=== PATIENT | female | born 1935 | race Two or more races ===

== ENCOUNTER 2019-10-04 19:46 | Inpatient (IN) | payer MEDICAID ==
[~2019-10-04] VITALS: Ht 160 cm; Wt 63.5 kg
[2019-10-04 20:00] VITALS: BP 123/56
--- NOTE | 2019-10-04 20:24 | Emergency Room Report ---
History of Present Illness General Chief Complaint: Chest Pain Source: Patient Present Illness HPI Disclaimer: Please note that this report is being documented using [employer] technology. This can lead to erroneous entry secondary to incorrect interpretation by the dictating instrument. HPI: This an 83-year-old female with history of CAD status post stenting, hypertension, hyperlipidemia presenting for evaluation of chest pain. Symptoms present approximate 2 days. Notes a pressure and congestion of the left side of the chest rating down the left arm. She notes some intermittent numbness and tingling down the left side. There is no lightheadedness, no loss of consciousness. She denies abdominal pain, nausea, vomiting. Reports some shortness of breath especially with exertion. She follows regular with her community health specialist cannot recall his name at this time. Last seen 8 months ago but unclear whether or not a stress test is been performed recently. Has been compliant with her medications. Denies any lower extremity swelling. PMH: CAD, hypertension, hyperlipidemia PSH: Cardiac stenting x3 Allergies: None reported Social Hx: Denies drug, tobacco or alcohol use Allergies: Coded Allergies: No Known Allergies (Unverified , 10/04/19) Nursing Documentation-PMH Hx Hypertension: Yes Review of Systems All Other Systems: negative except mentioned in HPI Physical Exam Vital Signs Date Time Temp Pulse Resp B/P (MAP) Pulse Ox O2 Delivery O2 Flow Rate FiO2 10/04/19 19:56 99.7 69 14 123/56 (78) 99 Room Air General: Awake and alert, no acute distress HEENT: NC/AT. EOMI. Cardiovascular: RRR. S1 and S2 normal. No murmur appreciated Resp: Normal work of breathing. No cough, wheezing or crackles appreciated Abdomen: Abdomen is soft, nondistended. Nontender Skin: Intact. No abrasions, laceration or rash over the exposed skin MSK: Normal tone and bulk. Moving all extremities. No obvious deformity. No lower extremity edema Neuro: Awake and alert. Mentating appropriately. Medical Decision Making Diagnostic Impression: Primary Impression: Chest pain ER Course This an 83-year-old female presenting for evaluation of chest pain. Symptoms present for 2 days but differential includes was not limited to unstable angina , ACS, pneumonia, CHF, musculoskeletal chest pain, dehydration, viral syndrome. Start broad metabolic, infectious and cardiac work-up. Given the patient's multiple risk factor she will require admission. Laboratory Tests Test 10/04/19 20:15 10/04/19 20:30 White Blood Count 5.7 K/UL (4.8-10.8) Red Blood Count 4.27 M/UL (4.20-5.40) Hemoglobin 13.4 G/DL (12.0-16.0) Hematocrit 38.0 % (37.0-47.0) Mean Corpuscular Volume 89 FL (80-99) Mean Corpuscular Hemoglobin 31.2 PG (27.0-31.0) H Mean Corpuscular Hemoglobin Concent 35.1 G/DL (32.0-36.0) Red Cell Distribution Width 9.7 % (11.6-14.8) L Platelet Count 117 K/UL (150-450) L Mean Platelet Volume 8.2 FL (6.5-10.1) Neutrophils (%) (Auto) 34.7 % (45.0-75.0) L Lymphocytes (%) (Auto) 51.2 % (20.0-45.0) H Monocytes (%) (Auto) 9.2 % (1.0-10.0) Eosinophils (%) (Auto) 3.4 % (0.0-3.0) H Basophils (%) (Auto) 1.5 % (0.0-2.0) Prothrombin Time 11.8 SEC (9.30-11.50) H Prothrombin Time INR 1.1 (0.9-1.1) PTT 24 SEC (23-33) D-Dimer 0.33 mg/L FEU (0.00-0.49) Sodium Level 144 MMOL/L (136-145) Potassium Level 4.2 MMOL/L (3.5-5.1) Chloride Level 107 MMOL/L (98-107) Carbon Dioxide Level 28 MMOL/L (21-32) Anion Gap 9 mmol/L (5-15) Blood Urea Nitrogen 19 mg/dL (7-18) H Creatinine 0.8 MG/DL (0.55-1.30) Estimate Glomerular Filtration Rate mL/min (>60) Glucose Level 102 MG/DL (74-106) Calcium Level 9.4 MG/DL (8.5-10.1) Total Bilirubin 0.4 MG/DL (0.2-1.0) Aspartate Amino Transferase (AST) 25 U/L (15-37) Alanine Aminotransferase (ALT) 42 U/L (12-78) Alkaline Phosphatase 107 U/L (46-116) Troponin I 0.000 ng/mL (0.000-0.056) Pro-B-Type Natriuretic Peptide 369 pg/mL (0-125) H Total Protein 7.0 G/DL (6.4-8.2) Albumin 3.8 G/DL (3.4-5.0) Globulin 3.2 g/dL Albumin/Globulin Ratio 1.2 (1.0-2.7) Urine Opiates Screen Negative (NEGATIVE) Urine Barbiturates Screen Negative (NEGATIVE) Phencyclidine (PCP) Screen Negative (NEGATIVE) Urine Amphetamines Screen Negative (NEGATIVE) Urine Benzodiazepines Screen Negative (NEGATIVE) Urine Cocaine Screen Negative (NEGATIVE) Urine Marijuana (THC) Screen Negative (NEGATIVE) Microbiology Date/Time Source Procedure Growth Status 10/04/19 21:00 Nasal Nares - Final Complete 10/04/19 21:00 Nasal Nares - Final Complete EKG Diagnostic Results EKG Time: 20:01 Rate: normal Rhythm: NSR ST Segments: no acute changes Other Impression Sinus rhythm, right upper axis deviation, normal intervals. No ST segment changes. Q waves in the inferior lateral leads Rhythm Strip Diag. Results Rhythm Strip Time: 20:01 EP Interpretation: yes Rate: 60s Rhythm: NSR, no PVC's, no ectopy Chest X-Ray Diagnostic Results Chest X-Ray Diagnostic Results : Chest X-Ray Ordered: Yes # of Views/Limited/Complete: 1 View Indication: Chest Pain EP Interpretation: Yes Interpretation: no consolidation, other - Bilateral vascular congestion. No obvious infiltrate or effusion Impression: Other - Bilateral vascular congestion Electronically Signed by: Electronically signed by Dr. Arnel Vivas Reevaluation Time: 21:57 Last Vital Signs Date Time Temp Pulse Resp B/P (MAP) Pulse Ox O2 Delivery O2 Flow Rate FiO2 10/04/19 19:56 99.7 69 14 123/56 (78) 99 Room Air Reevaluation Impression EKG shows inferior lateral Q waves consistent with the patient's history of CAD but no acute ST segment changes. Initial troponin is negative. Labs largely unremarkable. D-dimer negative. Flu swabs unremarkable. No obvious infiltrate or other pathology on chest x-ray. Given the patient's 2 days symptoms of left-sided radiating chest pain as well as exertional dyspnea believe she requires inpatient admission and cardiology evaluation. Family is agreeable. She will be admitted to telemetry. Disposition: ADMITTED INPATIENT Condition: Serious Arnel Vivas MD Oct 04, 2019 20:24
[2019-10-04 21:11] LABS: BASOPHILS % (AUTO) 1.5 % (0.0-2.0); EOSINOPHILS % (AUTO) 3.4 % (0.0-3.0); HEMOGLOBIN 13.4 G/DL (12.0-16.0); LYMPHOCYTES % (AUTO) 51.2 % (20.0-45.0); MEAN CORPUSCULAR VOLUME 89 FL (80-99); MONOCYTES % (AUTO) 9.2 % (1.0-10.0); NEUTROPHILS % (AUTO) 34.7 % (45.0-75.0); PLATELET COUNT 117 K/UL (150-450); RED BLOOD COUNT 4.27 M/UL (4.20-5.40); RED CELL DISTRIBUTION WIDTH 9.7 % (11.6-14.8); WHITE BLOOD COUNT 5.7 K/UL (4.8-10.8)
--- NOTE | 2019-10-04 21:13 | Diagnostic Imaging Report ---
Indications: Dizziness, vertigo Technique: Spiral acquisitions obtained through the brain. Angled axial and coronal 5 x 5 mm slices were reconstructed. Total dose length product 1332 mGycm. CTDI vol(s) 62 mGy. Dose reduction achieved using automated exposure control Comparison: None. Findings: There is mild periventricular deep white matter low-attenuation, consistent with chronic microvascular ischemic change. There is age-related enlargement of the ventricles and extra axial CSF spaces. Tiny right choroid plexus lipoma incidentally noted. No acute intracranial bleed or mass effect. There is left maxillary sinus opacification. There is evidence of prior bilateral cataract surgery. Impression: Chronic age-related changes Negative for acute intracranial bleed or mass effect Left maxillary sinus disease incidentally noted This agrees with the preliminary interpretation provided overnight by [facility] teleradiology service. The CT scanner at [facility] is accredited by the [employer] and the scans are performed using protocols designed to limit radiation exposure to as low as reasonably achievable to attain images of sufficient resolution adequate for diagnostic evaluation.
[2019-10-04 21:25] LABS: ANION GAP 9 mmol/L (5-15); BLOOD UREA NITROGEN 19 mg/dL (7-18); CALCIUM 9.4 MG/DL (8.5-10.1); CARBON DIOXIDE 28 MMOL/L (21-32); CHLORIDE 107 MMOL/L (98-107); CREATININE 0.8 MG/DL (0.55-1.30); POTASSIUM 4.2 MMOL/L (3.5-5.1); SODIUM 144 MMOL/L (136-145)
[2019-10-04 21:31] LABS: INR 1.1 (0.9-1.1)
[2019-10-04 21:32] LABS: ALANINE AMINOTRANSFERASE 42 U/L (12-78); ALBUMIN 3.8 G/DL (3.4-5.0); ALBUMIN/GLOBULIN RATIO 1.2 (1.0-2.7); ALKALINE PHOSPHATASE 107 U/L (46-116); ASPARTATE AMINO TRANSFERASE 25 U/L (15-37); BILIRUBIN,TOTAL 0.4 MG/DL (0.2-1.0)
[2019-10-04] MEDS ORDERED: Albuterol/Ipratropium 3ml neb HHN PRN (22:00)
[2019-10-04] MEDS ORDERED: Aspirin Baby 81mg ORAL ONE (22:00)
[2019-10-04] MEDS ORDERED: Nitroglycerin Subl 0.4mg tab SL PRN (22:00)
[2019-10-04] MEDS ORDERED: Miralax 17gm pkt ORAL PRN (22:00)
[2019-10-04 22:15] VITALS: BP 120/68
[2019-10-04] MEDS: Metoprolol Tartrate 5mg/5ml Inj IVP SCH ×2 (22:53→22:54)
[2019-10-04] MEDS ORDERED: Metoprolol Tartrate 5mg/5ml Inj IVP PRN (23:00)
[2019-10-05] VITALS: BP 109/45
[2019-10-05 04:00] VITALS: BP 108/52
--- NOTE | 2019-10-05 04:23 | History and Physical ---
History of Present Illness General Date patient seen: Oct 05, 2019 Reason for Hospitalization: Chest Pain Present Illness HPI 83-year-old female with history of CAD status post stents, hypertension, hyperlipidemia and diabetes presents with chest pain for 2 days. This is pressure-like and radiating down her left arm. Patient also reports intermittent numbness and Tingling on the left side. She also has palpitations. All of this was on and off and with resolve on its own. Denies any lightheadedness, syncope, dizziness, abdominal pain, nausea or vomiting. She is also experienced some burning sensation after eating some [place] food in the epigastric area. Patient also has shortness of breath especially on exertion and lying flat. Patient has a receiver dispatcher but cannot remember the name. Last seen about a month ago. Her cardiac stents were placed in [place]. Patient is compliant with medications. At this time she denies any lower extremity edema but sometimes she has trace edema after eating certain salty foods. Past medical history: Hypertension, hyperlipidemia, diabetes, CAD status post stents Past surgical history: Remote breast cyst surgery Social history: Never smoker, never EtOH or illicit drug use Family history: Denies any family history of heart disease. Allergies: Coded Allergies: No Known Allergies (Unverified , 10/04/19) Medication History Scheduled Atorvastatin Calcium* (Atorvastatin Calcium*), 40 MG ORAL BEDTIME, (Reported) Clopidogrel* (Clopidogrel*), 75 MG ORAL DAILY, (Reported) Isosorbide Mononitrate (Isosorbide Mononitrate Er), 30 MG PO DAILY, (Reported) Metformin Hcl* (Metformin Hcl*), 500 MG ORAL BID, (Reported) Metoprolol Tartrate* (Metoprolol Tartrate*), 25 MG ORAL DAILY, (Reported) Trazodone Hcl* (Desyrel*), 50 MG ORAL BEDTIME, (Reported) Patient History Healthcare decision maker N Resuscitation status Full Code Advanced Directive on File Review of Systems Constitutional: Denies: no symptoms, see HPI, chills, sweats, fever, malaise, weakness, other Eye: Denies: no symptoms, see HPI, eye pain, blurred vision, tearing, double vision, nose pain, nose congestion, acuity changes, discharge, other ENT: Denies: no symptoms, see HPI, ear pain, ear discharge, nose pain, nose congestion, throat pain, throat swelling, mouth pain, hearing loss, nasal discharge, other Respiratory: Reports: shortness of breath, SANZ Cardiovascular: Reports: chest pain, palpitations Gastrointestinal: Denies: no symptoms, see HPI, abdominal pain, constipation, diarrhea, nausea, vomiting, melena, hematemesis, other Genitourinary: Denies: no symptoms, see HPI, discharge, dysuria, frequency, hematuria, pain, retention, incontinence, urgency, vag bleed/dc, other Musculoskeletal: Denies: no symptoms, see HPI, back pain, gout, joint pain, joint swelling, muscle pain, muscle stiffness, other Skin: Denies: no symptoms, see HPI, rash, change in color, change in hair/nails , dryness, lesions, other Psychiatric: Denies: no symptoms, see HPI, prior hx, anxiety, depressed feelings, emotional problems, SI, HI, hallucinations, other Neurological: Denies: no symptoms, see HPI, headache, numbness, paresthesia, seizure, tingling, tremors, focal weakness, syncope, dizziness, other Endocrine: Denies: no symptoms, see HPI, excessive sweating, flushing, intolerance to temperature, increased thirst, increased urine, unexplained weight loss, other Hematologic/Lymphatic: Denies: no symptoms, see HPI, anemia, blood clots, easy bleeding, easy bruising, swollen glands, diathesis, other Physical Exam General Appearance: WD/WN, no apparent distress, alert Lines, tubes and drains: peripheral HEENT: normocephalic, atraumatic, anicteric, mucous membranes moist, PERRL, EOMI Neck: non-tender, normal alignment, supple, normal inspection Respiratory/Chest: chest wall non-tender, lungs clear, normal breath sounds, no respiratory distress Cardiovascular/Chest: normal peripheral pulses, normal rate, regular rhythm, no JVD, systolic murmur Abdomen: normal bowel sounds, non tender, soft, no organomegaly Extremities: normal range of motion, non-tender, no calf tenderness, no edema Skin Exam: normal pigmentation, warm/dry Neurologic: tax clerk II-XII grossly normal, no motor/sensory deficits, alert, oriented x 3, responsive Last 24 Hour Vital Signs Date Time Temp Pulse Resp B/P (MAP) Pulse Ox O2 Delivery O2 Flow Rate FiO2 10/05/19 01:31 Room Air 1/6/20 00:00 98.0 63 18 109/45 (66) 97 10/04/19 23:36 49 10/04/19 22:40 99.7 61 13 114/74 99 Room Air 10/04/19 22:15 99.7 60 13 120/68 99 Room Air 10/04/19 20:00 68 14 Room Air 10/04/19 20:00 99.7 68 14 123/56 99 Room Air 10/04/19 19:56 99.7 69 14 123/56 (78) 99 Room Air Laboratory Tests Test 10/04/19 20:15 10/04/19 20:30 White Blood Count 5.7 K/UL (4.8-10.8) Red Blood Count 4.27 M/UL (4.20-5.40) Hemoglobin 13.4 G/DL (12.0-16.0) Hematocrit 38.0 % (37.0-47.0) Mean Corpuscular Volume 89 FL (80-99) Mean Corpuscular Hemoglobin 31.2 PG (27.0-31.0) H Mean Corpuscular Hemoglobin Concent 35.1 G/DL (32.0-36.0) Red Cell Distribution Width 9.7 % (11.6-14.8) L Platelet Count 117 K/UL (150-450) L Mean Platelet Volume 8.2 FL (6.5-10.1) Neutrophils (%) (Auto) 34.7 % (45.0-75.0) L Lymphocytes (%) (Auto) 51.2 % (20.0-45.0) H Monocytes (%) (Auto) 9.2 % (1.0-10.0) Eosinophils (%) (Auto) 3.4 % (0.0-3.0) H Basophils (%) (Auto) 1.5 % (0.0-2.0) Prothrombin Time 11.8 SEC (9.30-11.50) H Prothromb Time International Ratio 1.1 (0.9-1.1) Activated Partial Thromboplast Time 24 SEC (23-33) D-Dimer 0.33 mg/L FEU (0.00-0.49) Sodium Level 144 MMOL/L (136-145) Potassium Level 4.2 MMOL/L (3.5-5.1) Chloride Level 107 MMOL/L (98-107) Carbon Dioxide Level 28 MMOL/L (21-32) Anion Gap 9 mmol/L (5-15) Blood Urea Nitrogen 19 mg/dL (7-18) H Creatinine 0.8 MG/DL (0.55-1.30) Estimat Glomerular Filtration Rate mL/min (>60) Glucose Level 102 MG/DL (74-106) Calcium Level 9.4 MG/DL (8.5-10.1) Total Bilirubin 0.4 MG/DL (0.2-1.0) Aspartate Amino Transf (AST/SGOT) 25 U/L (15-37) Alanine Aminotransferase (ALT/SGPT) 42 U/L (12-78) Alkaline Phosphatase 107 U/L (46-116) Troponin I 0.000 ng/mL (0.000-0.056) Pro-B-Type Natriuretic Peptide 369 pg/mL (0-125) H Total Protein 7.0 G/DL (6.4-8.2) Albumin 3.8 G/DL (3.4-5.0) Globulin 3.2 g/dL Albumin/Globulin Ratio 1.2 (1.0-2.7) Urine Opiates Screen Negative (NEGATIVE) Urine Barbiturates Screen Negative (NEGATIVE) Phencyclidine (PCP) Screen Negative (NEGATIVE) Urine Amphetamines Screen Negative (NEGATIVE) Urine Benzodiazepines Screen Negative (NEGATIVE) Urine Cocaine Screen Negative (NEGATIVE) Urine Marijuana (THC) Screen Negative (NEGATIVE) Microbiology Date/Time Source Procedure Growth Status 10/04/19 21:00 Nasal Nares - Final Complete 10/04/19 21:00 Nasal Nares - Final Complete Height (Feet): 5 Height (Inches): 3.00 Weight (Pounds): 140 Medications Current Medications Medications (Trade) Dose Ordered Sig/Da Route PRN Reason Start Time Stop Time Status Last Admin Dose Admin Acetaminophen (Tylenol) 650 mg Q4H PRN ORAL Mild Pain (Pain Scale 1-3) 10/04/19 22:00 11/03/19 21:59 Acetaminophen (Tylenol) 650 mg Q4H PRN ORAL fever 10/04/19 22:00 11/03/19 21:59 Albuterol/ Ipratropium (Albuterol/ Ipratropium) 3 ml Q4HR PRN HHN Shortness of Breath 10/04/19 22:00 10/09/19 21:59 Aspirin (ASA) 81 mg DAILY ORAL 10/05/19 09:00 11/04/19 08:59 Dextrose (Dextrose 50%) 25 ml Q30M PRN IV Hypoglycemia 10/04/19 22:00 11/03/19 21:59 Dextrose (Dextrose 50%) 50 ml Q30M PRN IV Hypoglycemia 10/04/19 22:00 11/03/19 21:59 Heparin Sodium (Porcine) (Heparin 5000 units/ml) 5,000 units EVERY 12 HOURS SUBQ 10/05/19 09:00 11/04/19 08:59 UNV Metoprolol Tartrate (Lopressor) 5 mg Q5MIN X 3 PRN IVP For High Blood Pressure 10/04/19 23:00 11/03/19 22:59 UNV Nitroglycerin (Ntg) 0.4 mg Q5M PRN SL Prn Chest Pain 10/04/19 22:00 11/03/19 21:59 Polyethylene Glycol (Miralax) 17 gm DAILYPRN PRN ORAL Constipation 10/04/19 22:00 11/03/19 21:59 Temazepam (Restoril) 15 mg BEDTIME PRN ORAL Insomnia 10/04/19 22:30 10/11/19 22:29 Objective Narrative EKG strip personally reviewed by me shows normal sinus rhythm at 64 bpm, right axis deviation, right ventricular hypertrophy, no acute ST-T changes Chest x-ray is reviewed by radiology: Bilateral interstitial edema, cardiomegaly CT head: Negative for any acute pathology Assessment/Plan Problem List: (1) Diastolic CHF, acute on chronic ICD Codes: I50.33 - Acute on chronic diastolic (congestive) heart failure SNOMED: 279028103, 161559248 (2) CAD S/P percutaneous coronary angioplasty ICD Codes: I25.10 - Atherosclerotic heart disease of [place] coronary artery without angina pectoris; Z98.61 - Coronary angioplasty status SNOMED: 559407329 (3) Diabetes mellitus ICD Codes: E11.9 - Type 2 diabetes mellitus without complications SNOMED: 76870202 (4) HTN (hypertension) ICD Codes: I10 - Essential (primary) hypertension SNOMED: 65574396 (5) HLD (hyperlipidemia) ICD Codes: E78.5 - Hyperlipidemia, unspecified SNOMED: 31553979 (6) Chest pain ICD Codes: R07.9 - Chest pain, unspecified SNOMED: 05759776 (7) Thrombocytopenia ICD Codes: D69.6 - Thrombocytopenia, unspecified SNOMED: 665841565 Status: stable Assessment/Plan: This is an 83-year-old female with significant cardiac history, CAD status post PCI on Plavix, hypertension, hyperlipidemia, diabetes presented with chest pain of 2 days duration. Her vitals were within normal limits and stable. Her troponin is negative x2, U tox is negative, d-dimer is negative, EKG nonischemic , proBNP 369, platelet count 117, chest x-ray with bilateral interstitial edema and cardiomegaly. 1. Chest pain rule out ACS in a patient with significant cardiac history 2. Diastolic CHF acute likely on chronic 3. Hypertension 4. Hyperlipidemia 5. Diabetes 6. Thrombocytopenia Plan Admit to telemetry Serial cardiac enzymes and EKG 2D echocardiogram to evaluate LV systolic function and any regional wall motion abnormalities Cardiology consult with Resume home metoprolol, isosorbide mononitrate, clopidogrel, atorvastatin Hold metformin. Start insulin via sensitive sliding scale. Check hemoglobin A1c Judicious diuresis Cardiac stress test per cardiology discretion Monitor platelet count, if no improvement hematology consult VTE and GI prophylaxis. Will obtain venous ultrasound and use SCD boots due to thrombocytopenia Full code I spent 70 minutes on this encounter. Greater than 50% spent on counseling care coordination. I spent an additional 35 minutes in obtaining previous records, labs and imaging and hospitalization. I also initiated goals of care and advanced directive discussion with patient. Will offer POLST & before discharge. Patient's daughter: Firoozeh: [phone] Plan of care discussed with patient, RN, receiver dispatcher. Time of note may not reflect time of encounter. Raj Bran M.D. Oct 05, 2019 04:23
[2019-10-05] MEDS ORDERED: ISOSORBIDE MONO30 M1 PO (04:35)
[2019-10-05] MEDS ORDERED: CLOPIDOGREL75 MG ORAL (04:35)
[2019-10-05] MEDS ORDERED: METFORMIN HCL500 M1 ORAL (04:35)
[2019-10-05] MEDS ORDERED: ATORVASTATIN CA40 MG ORAL (04:35)
[2019-10-05] MEDS ORDERED: METOPROLOL TART25 MG ORAL (04:35)
[2019-10-05] MEDS ORDERED: TRAZODONE HCL50 MG ORAL (04:35)
[2019-10-05 04:53] LABS: ANION GAP 9 mmol/L (5-15); BLOOD UREA NITROGEN 17 mg/dL (7-18); CARBON DIOXIDE 26 MMOL/L (21-32); CHLORIDE 110 MMOL/L (98-107); CREATININE 0.7 MG/DL (0.55-1.30); SODIUM 145 MMOL/L (136-145)
[2019-10-05 04:58] LABS: HEMATOCRIT 38.3 % (37.0-47.0); HEMOGLOBIN 13.5 G/DL (12.0-16.0); MEAN CORPUSCULAR VOLUME 89 FL (80-99); PLATELET COUNT 113 K/UL (150-450); RED CELL DISTRIBUTION WIDTH 10.8 % (11.6-14.8); WHITE BLOOD COUNT 5.4 K/UL (4.8-10.8)
[2019-10-05 05:05] LABS: ALANINE AMINOTRANSFERASE 37 U/L (12-78); ALBUMIN 3.5 G/DL (3.4-5.0); ALBUMIN/GLOBULIN RATIO 1.2 (1.0-2.7); ALKALINE PHOSPHATASE 84 U/L (46-116); ASPARTATE AMINO TRANSFERASE 23 U/L (15-37); BILIRUBIN,TOTAL 0.5 MG/DL (0.2-1.0)
[2019-10-05 08:00] VITALS: BP 149/76
[2019-10-05] MEDS: Aspirin Baby 81mg ORAL SCH (08:38)
[2019-10-05] MEDS ORDERED: Heparin 5000 units/ml inj SUBQ SCH (09:00)
[2019-10-05] MEDS: Imdur 30mg tab ORAL SCH (11:00)
[2019-10-05] MEDS: Metoprolol Succinate XL 50mg tab ORAL SCH (11:00)
[2019-10-05] MEDS: NovoLOG Insulin Flexpen SUBQ SCH ×3 (11:30→21:00)
[2019-10-05 12:00] VITALS: BP 131/76
--- NOTE | 2019-10-05 15:39 | Cardiac Electrophysiology PN ---
Subjective Subjective [id number] Objective Last 24 Hour Vital Signs Date Time Temp Pulse Resp B/P (MAP) Pulse Ox O2 Delivery O2 Flow Rate FiO2 10/05/19 12:00 61 10/05/19 12:00 97.9 65 18 131/76 (94) 95 10/05/19 11:00 72 149/76 10/05/19 11:00 149/76 10/05/19 09:00 Room Air 10/05/19 08:00 72 10/05/19 08:00 98.0 64 20 149/76 (100) 97 10/05/19 04:00 98.2 59 18 108/52 (70) 98 10/05/19 04:00 51 10/05/19 01:31 Room Air 10/05/19 00:00 98.0 63 18 109/45 (66) 97 10/04/19 23:36 49 10/04/19 22:40 99.7 61 13 114/74 99 Room Air 10/04/19 22:15 99.7 60 13 120/68 99 Room Air 10/04/19 20:00 68 14 Room Air 10/04/19 20:00 99.7 68 14 123/56 99 Room Air 10/04/19 19:56 99.7 69 14 123/56 (78) 99 Room Air Intake and Output 10/04/19 10/05/19 19:00 07:00 Intake Total 240 ml Balance 240 ml Intake Oral 240 ml # Voids 4 Laboratory Tests Test 10/04/19 20:15 10/04/19 20:30 10/05/19 04:00 White Blood Count 5.7 K/UL (4.8-10.8) 5.4 K/UL (4.8-10.8) Red Blood Count 4.27 M/UL (4.20-5.40) 4.30 M/UL (4.20-5.40) Hemoglobin 13.4 G/DL (12.0-16.0) 13.5 G/DL (12.0-16.0) Hematocrit 38.0 % (37.0-47.0) 38.3 % (37.0-47.0) Mean Corpuscular Volume 89 FL (80-99) 89 FL (80-99) Mean Corpuscular Hemoglobin 31.2 PG (27.0-31.0) H 31.3 PG (27.0-31.0) H Mean Corpuscular Hemoglobin Concent 35.1 G/DL (32.0-36.0) 35.2 G/DL (32.0-36.0) Red Cell Distribution Width 9.7 % (11.6-14.8) L 10.8 % (11.6-14.8) L Platelet Count 117 K/UL (150-450) L 113 K/UL (150-450) L Mean Platelet Volume 8.2 FL (6.5-10.1) 8.1 FL (6.5-10.1) Neutrophils (%) (Auto) 34.7 % (45.0-75.0) L % (45.0-75.0) Lymphocytes (%) (Auto) 51.2 % (20.0-45.0) H % (20.0-45.0) Monocytes (%) (Auto) 9.2 % (1.0-10.0) % (1.0-10.0) Eosinophils (%) (Auto) 3.4 % (0.0-3.0) H % (0.0-3.0) Basophils (%) (Auto) 1.5 % (0.0-2.0) % (0.0-2.0) Prothrombin Time 11.8 SEC (9.30-11.50) H Prothromb Time International Ratio 1.1 (0.9-1.1) Activated Partial Thromboplast Time 24 SEC (23-33) D-Dimer 0.33 mg/L FEU (0.00-0.49) Sodium Level 144 MMOL/L (136-145) 145 MMOL/L (136-145) Potassium Level 4.2 MMOL/L (3.5-5.1) 4.0 MMOL/L (3.5-5.1) Chloride Level 107 MMOL/L (98-107) 110 MMOL/L (98-107) H Carbon Dioxide Level 28 MMOL/L (21-32) 26 MMOL/L (21-32) Anion Gap 9 mmol/L (5-15) 9 mmol/L (5-15) Blood Urea Nitrogen 19 mg/dL (7-18) H 17 mg/dL (7-18) Creatinine 0.8 MG/DL (0.55-1.30) 0.7 MG/DL (0.55-1.30) Estimat Glomerular Filtration Rate mL/min (>60) mL/min (>60) Glucose Level 102 MG/DL (74-106) 81 MG/DL (74-106) Calcium Level 9.4 MG/DL (8.5-10.1) 9.0 MG/DL (8.5-10.1) Total Bilirubin 0.4 MG/DL (0.2-1.0) 0.5 MG/DL (0.2-1.0) Aspartate Amino Transf (AST/SGOT) 25 U/L (15-37) 23 U/L (15-37) Alanine Aminotransferase (ALT/SGPT) 42 U/L (12-78) 37 U/L (12-78) Alkaline Phosphatase 107 U/L (46-116) 84 U/L (46-116) Troponin I 0.000 ng/mL (0.000-0.056) 0.000 ng/mL (0.000-0.056) Pro-B-Type Natriuretic Peptide 369 pg/mL (0-125) H Total Protein 7.0 G/DL (6.4-8.2) 6.5 G/DL (6.4-8.2) Albumin 3.8 G/DL (3.4-5.0) 3.5 G/DL (3.4-5.0) Globulin 3.2 g/dL 3.0 g/dL Albumin/Globulin Ratio 1.2 (1.0-2.7) 1.2 (1.0-2.7) Urine Opiates Screen Negative (NEGATIVE) Urine Barbiturates Screen Negative (NEGATIVE) Phencyclidine (PCP) Screen Negative (NEGATIVE) Urine Amphetamines Screen Negative (NEGATIVE) Urine Benzodiazepines Screen Negative (NEGATIVE) Urine Cocaine Screen Negative (NEGATIVE) Urine Marijuana (THC) Screen Negative (NEGATIVE) Thyroid Stimulating Hormone (TSH) 1.075 uiU/mL (0.358-3.740) Microbiology Date/Time Source Procedure Growth Status 10/04/19 21:00 Nasal Nares - Final Complete 10/04/19 21:00 Nasal Nares - Final Complete John Giordano MD Oct 05, 2019 15:39
[2019-10-05] MEDS ORDERED: Lexiscan 0.4mg/5ml syringe IV PRN (15:45)
[2019-10-05 16:00] VITALS: BP 152/84
--- NOTE | 2019-10-05 18:47 | Diagnostic Imaging Report ---
Indication: Chest pain Technique: One view of the chest Comparison: none Findings: The heart is enlarged. There is bilateral interstitial edema. The pleural spaces are grossly clear Impression: Cardiomegaly Bilateral interstitial edema
[2019-10-05 20:00] VITALS: BP 118/64
[2019-10-05] MEDS ORDERED: Atorvastatin 20mg tab ORAL SCH (21:00)
[2019-10-05] MEDS ORDERED: TraZODone 50mg tab ORAL SCH (21:00)
[2019-10-06 00:03] VITALS: BP 121/62
--- NOTE | 2019-10-06 00:15 | Consultation ---
DATE OF CONSULTATION: 10/05/2019 CARDIOLOGY CONSULTATION CONSULTING PHYSICIAN: John Giordano M.D. REFERRING PHYSICIAN: Patricia Julien M.D. REASON FOR CONSULTATION: Chest pain. HISTORY OF PRESENT ILLNESS: The patient is an 83-year-old [place] lady with a history of coronary artery disease, prior stent placement in [place] a few years back, as well as hyperlipidemia, who presents to the emergency room complaining of chest pain that has been going on for about 2 days. The patient states it is not pressure like but she feels more like a congestion in the left side of her chest with radiation to the left arm. The patient did not have any syncope or presyncope, nausea, vomiting, or diaphoresis. The patient has some dyspnea on exertion. She usually follows up with a sheet music salesperson, but does not remember his name as it has been changed through her insurance. The patient last saw the sheet music salesperson about 8 months ago, but not sure if she had ever at a stress test since then. REVIEW OF SYSTEMS: Review of systems was negative other than what was mentioned in the history of present illness. PAST MEDICAL HISTORY: As mentioned above. FAMILY HISTORY: Noncontributory. SOCIAL HISTORY: She lives at home. Does not smoke or drink alcohol. PHYSICAL EXAMINATION: VITAL SIGNS: Blood pressure 131/76, pulse 65, respirations 18, and she is afebrile. HEAD AND NECK: Showed no JVD. LUNGS: Clear. CARDIOVASCULAR: Regular S1 and S2 with no gallop or murmur. ABDOMEN: Soft and nontender. EXTREMITIES: No pitting edema. LABORATORY AND DIAGNOSTIC DATA: Her EKG shows sinus rhythm, positive for right ventricular hypertrophy, nonspecific T-wave abnormalities. Her labs show white count of 5.5, hemoglobin 13.5, hematocrit 38.3, and platelet count of 113. Sodium is 145, potassium 4.0, BUN of 17, creatinine 0.7. Troponin negative x2. BNP 369. ASSESSMENT AND PLAN: 1. Chest pain. The patient with a history of coronary artery disease, hypertension, and hyperlipidemia. The patient will be ruled out for myocardial infarction. EKG has nonspecific ST-T wave abnormalities. Her echocardiogram showed normal left ventricular systolic function, ejection fraction of 60%. We will schedule the patient for stress test. 2. Hypertension. Continue Toprol-XL 25 mg daily as well as Imdur 30 mg daily. 3. History of coronary artery disease with prior stent, on aspirin, Plavix, Imdur, Toprol-XL as well as Lipitor. 4. Chronic obstructive pulmonary disease. 5. Diabetes, on insulin. Thank you very much, Dr. Julien, for allowing me to participate in the care of this patient. Please do not hesitate to contact me for any questions regarding my evaluation. Sincerely, John Giordano M.D. DR: Sravanthi JOB#: [id number] CC:
[2019-10-06 04:00] VITALS: BP 107/55
[2019-10-06] MEDS: NovoLOG Insulin Flexpen SUBQ SCH ×3 (06:22→16:30)
[2019-10-06 07:22] LABS: BASOPHILS % (AUTO) 1.3 % (0.0-2.0); EOSINOPHILS % (AUTO) 4.4 % (0.0-3.0); HEMOGLOBIN 13.2 G/DL (12.0-16.0); LYMPHOCYTES % (AUTO) 51.9 % (20.0-45.0); MEAN CORPUSCULAR VOLUME 90 FL (80-99); MONOCYTES % (AUTO) 10.1 % (1.0-10.0); NEUTROPHILS % (AUTO) 32.4 % (45.0-75.0); PLATELET COUNT 114 K/UL (150-450); RED BLOOD COUNT 4.23 M/UL (4.20-5.40); RED CELL DISTRIBUTION WIDTH 10.6 % (11.6-14.8); WHITE BLOOD COUNT 4.3 K/UL (4.8-10.8)
[2019-10-06 07:44] LABS: ANION GAP 7 mmol/L (5-15); BLOOD UREA NITROGEN 10 mg/dL (7-18); CARBON DIOXIDE 27 MMOL/L (21-32); CHLORIDE 109 MMOL/L (98-107); CREATININE 0.7 MG/DL (0.55-1.30); POTASSIUM 4.2 MMOL/L (3.5-5.1); SODIUM 143 MMOL/L (136-145)
[2019-10-06 08:00] VITALS: BP 121/69
[2019-10-06] MEDS: Imdur 30mg tab ORAL SCH (08:25)
[2019-10-06] MEDS: Metoprolol Succinate XL 50mg tab ORAL SCH (08:26)
[2019-10-06] MEDS: Aspirin Baby 81mg ORAL SCH (09:06)
--- NOTE | 2019-10-06 11:23 | Cardiac Electrophysiology PN ---
Assessment/Plan Assessment/Plan 1. Chest pain in a pt with history of coronary artery disease, hypertension, and hyperlipidemia. Was ruled out for myocardial infarction. EKG has nonspecific ST-T wave abnormalities. Her echocardiogram showed normal left ventricular systolic function, ejection fraction of 60%. Nuclear stress test pending today. On Aspirin, Plavix, Toprol, Lipitor and Imdur 2. Hypertension. Continue Toprol-XL 25 mg daily as well as Imdur 30 mg daily. 3. History of coronary artery disease with prior stent, on aspirin, Plavix, Imdur, Toprol-XL as well as Lipitor. 4. Chronic obstructive pulmonary disease. 5. Diabetes, on insulin. OLIVE RN Subjective Subjective No CP or SOB.Awaiting stress test today Objective Last 24 Hour Vital Signs Date Time Temp Pulse Resp B/P (MAP) Pulse Ox O2 Delivery O2 Flow Rate FiO2 10/06/19 09:00 Room Air 10/06/19 08:26 60 121/69 10/06/19 08:25 121/69 10/06/19 08:00 97.7 60 18 121/69 (86) 98 10/06/19 08:00 54 10/06/19 07:37 67 18 97 21 10/06/19 04:12 52 10/06/19 04:00 97.8 65 18 107/55 (72) 97 10/06/19 00:03 98.2 66 17 121/62 (81) 96 10/06/19 00:00 60 10/05/19 21:00 Room Air 10/05/19 20:00 61 10/05/19 20:00 98.1 63 18 118/64 (82) 95 10/05/19 16:00 61 10/05/19 16:00 97.5 76 18 152/84 (106) 98 10/05/19 12:00 61 10/05/19 12:00 97.9 65 18 131/76 (94) 95 Intake and Output 10/05/19 10/06/19 19:00 07:00 Intake Total 510 ml 360 ml Balance 510 ml 360 ml Intake Oral 360 ml 360 ml IV Total 150 ml # Voids 3 3 # Bowel Movements 1 Laboratory Tests Test 10/06/19 06:28 White Blood Count 4.3 K/UL (4.8-10.8) L Red Blood Count 4.23 M/UL (4.20-5.40) Hemoglobin 13.2 G/DL (12.0-16.0) Hematocrit 38.0 % (37.0-47.0) Mean Corpuscular Volume 90 FL (80-99) Mean Corpuscular Hemoglobin 31.1 PG (27.0-31.0) H Mean Corpuscular Hemoglobin Concent 34.6 G/DL (32.0-36.0) Red Cell Distribution Width 10.6 % (11.6-14.8) L Platelet Count 114 K/UL (150-450) L Mean Platelet Volume 7.5 FL (6.5-10.1) Neutrophils (%) (Auto) 32.4 % (45.0-75.0) L Lymphocytes (%) (Auto) 51.9 % (20.0-45.0) H Monocytes (%) (Auto) 10.1 % (1.0-10.0) H Eosinophils (%) (Auto) 4.4 % (0.0-3.0) H Basophils (%) (Auto) 1.3 % (0.0-2.0) Sodium Level 143 MMOL/L (136-145) Potassium Level 4.2 MMOL/L (3.5-5.1) Chloride Level 109 MMOL/L (98-107) H Carbon Dioxide Level 27 MMOL/L (21-32) Anion Gap 7 mmol/L (5-15) Blood Urea Nitrogen 10 mg/dL (7-18) Creatinine 0.7 MG/DL (0.55-1.30) Estimat Glomerular Filtration Rate mL/min (>60) Glucose Level 103 MG/DL (74-106) Hemoglobin A1c 6.4 % (4.3-6.0) H Calcium Level 9.0 MG/DL (8.5-10.1) Microbiology Date/Time Source Procedure Growth Status 10/04/19 21:00 Nasal Nares - Final Complete 10/04/19 21:00 Nasal Nares - Final Complete Objective HEAD AND NECK: No JVD. LUNGS: Clear. CARDIOVASCULAR: Regular S1 and S2 with no gallop or murmur. ABDOMEN: Soft and nontender. EXTREMITIES: No pitting edema. John Giordano MD Oct 06, 2019 11:22
--- NOTE | 2019-10-06 11:24 | Cardiac Electrophysiology PN ---
Assessment/Plan Assessment/Plan 1. Chest pain in a patient with a history of coronary artery disease, hypertension, and hyperlipidemia. Was ruled out for myocardial infarction. EKG has nonspecific ST-T wave abnormalities. Her echocardiogram showed normal left ventricular systolic function, ejection fraction of 60%. Scheduled for stress test today. 2. Hypertension. Continue Toprol-XL 25 mg daily as well as Imdur 30 mg daily. 3. History of coronary artery disease with prior stent, on aspirin, Plavix, Imdur, Toprol-XL as well as Lipitor. 4. Chronic obstructive pulmonary disease. 5. Diabetes, on insulin. Subjective Subjective No CP or SOB. Awaiting nuclear stress test today. HR dropped to 50 this am. Objective Last 24 Hour Vital Signs Date Time Temp Pulse Resp B/P (MAP) Pulse Ox O2 Delivery O2 Flow Rate FiO2 10/06/19 08:26 60 121/69 10/06/19 08:25 121/69 10/06/19 08:00 97.7 60 18 121/69 (86) 98 10/06/19 07:37 67 18 97 21 10/06/19 04:12 52 10/06/19 04:00 97.8 65 18 107/55 (72) 97 10/06/19 00:03 98.2 66 17 121/62 (81) 96 10/06/19 00:00 60 10/05/19 21:00 Room Air 10/05/19 20:00 61 10/05/19 20:00 98.1 63 18 118/64 (82) 95 10/05/19 16:00 61 10/05/19 16:00 97.5 76 18 152/84 (106) 98 10/05/19 12:00 61 10/05/19 12:00 97.9 65 18 131/76 (94) 95 Intake and Output 10/05/19 10/06/19 19:00 07:00 Intake Total 510 ml 360 ml Balance 510 ml 360 ml Intake Oral 360 ml 360 ml IV Total 150 ml # Voids 3 3 # Bowel Movements 1 Laboratory Tests Test 10/06/19 06:28 White Blood Count 4.3 K/UL (4.8-10.8) L Red Blood Count 4.23 M/UL (4.20-5.40) Hemoglobin 13.2 G/DL (12.0-16.0) Hematocrit 38.0 % (37.0-47.0) Mean Corpuscular Volume 90 FL (80-99) Mean Corpuscular Hemoglobin 31.1 PG (27.0-31.0) H Mean Corpuscular Hemoglobin Concent 34.6 G/DL (32.0-36.0) Red Cell Distribution Width 10.6 % (11.6-14.8) L Platelet Count 114 K/UL (150-450) L Mean Platelet Volume 7.5 FL (6.5-10.1) Neutrophils (%) (Auto) 32.4 % (45.0-75.0) L Lymphocytes (%) (Auto) 51.9 % (20.0-45.0) H Monocytes (%) (Auto) 10.1 % (1.0-10.0) H Eosinophils (%) (Auto) 4.4 % (0.0-3.0) H Basophils (%) (Auto) 1.3 % (0.0-2.0) Sodium Level 143 MMOL/L (136-145) Potassium Level 4.2 MMOL/L (3.5-5.1) Chloride Level 109 MMOL/L (98-107) H Carbon Dioxide Level 27 MMOL/L (21-32) Anion Gap 7 mmol/L (5-15) Blood Urea Nitrogen 10 mg/dL (7-18) Creatinine 0.7 MG/DL (0.55-1.30) Estimat Glomerular Filtration Rate mL/min (>60) Glucose Level 103 MG/DL (74-106) Hemoglobin A1c 6.4 % (4.3-6.0) H Calcium Level 9.0 MG/DL (8.5-10.1) Microbiology Date/Time Source Procedure Growth Status 10/04/19 21:00 Nasal Nares - Final Complete 10/04/19 21:00 Nasal Nares - Final Complete Objective HEAD AND NECK: No JVD. LUNGS: Clear. CARDIOVASCULAR: Regular S1 and S2 with no gallop or murmur. ABDOMEN: Soft and nontender. EXTREMITIES: No pitting edema. John Giordano MD Oct 06, 2019 11:24
[2019-10-06 11:56] VITALS: BP 131/74
--- NOTE | 2019-10-06 14:04 | General Progress Note ---
Assessment/Plan Problem List: (1) Diastolic CHF, acute on chronic ICD Codes: I50.33 - Acute on chronic diastolic (congestive) heart failure SNOMED: 513776315, 393091825 (2) CAD S/P percutaneous coronary angioplasty ICD Codes: I25.10 - Atherosclerotic heart disease of [place] coronary artery without angina pectoris; Z98.61 - Coronary angioplasty status SNOMED: 377201031 (3) Diabetes mellitus ICD Codes: E11.9 - Type 2 diabetes mellitus without complications SNOMED: 04987064 (4) HTN (hypertension) ICD Codes: I10 - Essential (primary) hypertension SNOMED: 16756001 (5) HLD (hyperlipidemia) ICD Codes: E78.5 - Hyperlipidemia, unspecified SNOMED: 99357309 (6) Chest pain ICD Codes: R07.9 - Chest pain, unspecified SNOMED: 11068205 (7) Thrombocytopenia ICD Codes: D69.6 - Thrombocytopenia, unspecified SNOMED: 793345660 Status: stable Assessment/Plan: This is an 83-year-old female with significant cardiac history, CAD status post PCI on Plavix, hypertension, hyperlipidemia, diabetes presented with chest pain of 2 days duration. Her vitals were within normal limits and stable. Her troponin is negative x2, U tox is negative, d-dimer is negative, EKG nonischemic , proBNP 369, platelet count 117, chest x-ray with bilateral interstitial edema and cardiomegaly. 1. Chest pain rule out ACS in a patient with significant cardiac history. stress test today 2. Diastolic CHF acute likely on chronic 3. Hypertension 4. Hyperlipidemia 5. Diabetes 6. Thrombocytopenia Plan Admit to telemetry Serial cardiac enzymes and EKG 2D echocardiogram to evaluate LV systolic function and any regional wall motion abnormalities. normal EF Cardiology consult with appreciated Resume home metoprolol, isosorbide mononitrate, clopidogrel, atorvastatin Hold metformin. Start insulin via sensitive sliding scale. Check hemoglobin A1c--> 6.4 Judicious diuresis Cardiac stress test per cardiology today Monitor platelet count, if no improvement hematology consult VTE and GI prophylaxis. Will obtain venous ultrasound and use SCD boots due to thrombocytopenia Full code I spent 40 minutes on this encounter. Greater than 50% spent on counseling care coordination Patient's daughter: Richardoodarronh: [phone] Plan of care discussed with patient, RN, electron gun assembler. Time of note may not reflect time of encounter. Subjective Date patient seen: Oct 06, 2019 ROS Limited/Unobtainable: No Constitutional: Denies: no symptoms, chills, diaphoresis, fever, malaise, weakness, other HEENT: Denies: no symptoms, eye pain, blurred vision, tearing, double vision, ear pain, ear discharge, nose pain, nose congestion, throat pain, throat swelling, mouth pain, mouth swelling, other Cardiovascular: Denies: no symptoms, chest pain, edema, irregular heart rate, lightheadedness, palpitations, syncope, other Respiratory: Denies: no symptoms, cough, orthopnea, shortness of breath, SOB with excertion, SOB at rest, sputum, stridor, wheezing, other Gastrointestinal/Abdominal: Denies: no symptoms, abdomen distended, abdominal pain, black stools, tarry stools, blood in stool, constipated, diarrhea, difficulty swallowing, nausea, poor appetite, poor fluid intake, rectal bleeding , vomiting, other Genitourinary: Denies: no symptoms, burning, discharge, frequency, flank pain, hematuria, incontinence, pain, urgency, other Neurologic/Psychiatric: Denies: no symptoms, anxiety, depressed, emotional problems, headache, numbness, paresthesia, pre-existing deficit, seizure, tingling, tremors, weakness, other Endocrine: Denies: no symptoms, excessive sweating, flushing, intolerance to cold, intolerance to heat, increased hunger, increased thirst, increased urine, unexplained weight gain, unexplained weight loss, other Hematologic/Lymphatic: Denies: no symptoms, anemia, easy bleeding, easy bruising, other Allergies: Coded Allergies: No Known Allergies (Unverified , 10/04/19) Subjective seen and examined at bedside. for stress test today. upset that patient in the next bed to her is using a commode that's very close to her bed. denies chest pain, sob, palpitations. Objective Last 24 Hour Vital Signs Date Time Temp Pulse Resp B/P (MAP) Pulse Ox O2 Delivery O2 Flow Rate FiO2 10/06/19 12:00 46 10/06/19 11:56 97.0 51 20 131/74 (93) 98 10/06/19 09:00 Room Air 10/06/19 08:26 60 121/69 10/06/19 08:25 121/69 10/06/19 08:00 97.7 60 18 121/69 (86) 98 10/06/19 08:00 54 10/06/19 07:37 67 18 97 21 10/06/19 04:12 52 10/06/19 04:00 97.8 65 18 107/55 (72) 97 10/06/19 00:03 98.2 66 17 121/62 (81) 96 10/06/19 00:00 60 10/05/19 21:00 Room Air 10/05/19 20:00 61 10/05/19 20:00 98.1 63 18 118/64 (82) 95 10/05/19 16:00 61 10/05/19 16:00 97.5 76 18 152/84 (106) 98 Intake and Output 10/05/19 10/06/19 19:00 07:00 Intake Total 510 ml 360 ml Balance 510 ml 360 ml Intake Oral 360 ml 360 ml IV Total 150 ml # Voids 3 3 # Bowel Movements 1 Laboratory Tests 10/06/19 06:28: White Blood Count 4.3L, Red Blood Count 4.23, Hemoglobin 13.2, Hematocrit 38.0, Mean Corpuscular Volume 90, Mean Corpuscular Hemoglobin 31.1H, Mean Corpuscular Hemoglobin Concent 34.6, Red Cell Distribution Width 10.6L, Platelet Count 114L , Mean Platelet Volume 7.5, Neutrophils (%) (Auto) 32.4L, Lymphocytes (%) (Auto ) 51.9H, Monocytes (%) (Auto) 10.1H, Eosinophils (%) (Auto) 4.4H, Basophils (%) (Auto) 1.3, Sodium Level 143, Potassium Level 4.2, Chloride Level 109H, Carbon Dioxide Level 27, Anion Gap 7, Blood Urea Nitrogen 10, Creatinine 0.7, Estimat Glomerular Filtration Rate , Glucose Level 103, Hemoglobin A1c 6.4H, Calcium Level 9.0 Height (Feet): 5 Height (Inches): 3.00 Weight (Pounds): 140 Objective General Appearance: WD/WN, no apparent distress, alert Lines, tubes and drains: peripheral HEENT: normocephalic, atraumatic, anicteric, mucous membranes moist, PERRL, EOMI Neck: non-tender, normal alignment, supple, normal inspection Respiratory/Chest: chest wall non-tender, lungs clear, normal breath sounds, no respiratory distress Cardiovascular/Chest: normal peripheral pulses, normal rate, regular rhythm, no JVD, systolic murmur Abdomen: normal bowel sounds, non tender, soft, no organomegaly Extremities: normal range of motion, non-tender, no calf tenderness, no edema Skin Exam: normal pigmentation, warm/dry Neurologic: aircraft load controller II-XII grossly normal, no motor/sensory deficits, alert, oriented x 3, responsive Raj Bran M.D. Oct 06, 2019 14:04
[2019-10-06 15:48] VITALS: BP 124/67
--- NOTE | 2019-10-06 16:08 | Diagnostic Imaging Report ---
Indications: Chest pain Technique: Single day single isotope protocol utilized. Initially, resting images obtained using IV administration 10.7 millicuries 99M technetium Myoview. Subsequently, patient underwent lexiscan stress testing. See cardiology report for details. During adenosine infusion, IV administration 32.2 mCi 99 M technetium Myoview. SPECT and planar images obtained. SPECT images gated to 8 phases of the cardiac cycle were also obtained, and reformatted into cine images for evaluation of ejection fraction. Comparison: none Findings: Per cardiology report, patient experienced epigastric pain and chest pain during infusion. Per cardiology report, resting EKG demonstrates normal sinus rhythm. [address] depression seen in the lead I, 3, aVF, V3 through V6 during infusion. Imaging demonstrates no fixed nor reversible post stress perfusion defects. Normal cardiac chamber size. Calculated post stress ejection fraction 88%. No focal wall motion abnormality demonstrated Impression: Ischemic clinical response to pharmacologic stress, per cardiology report Ischemic electrocardiographic response to pharmacologic stress, per cardiology report No imaging findings to suggest ischemia, at level of stress achieved. Calculated post stress ejection fraction greater than 70%
--- NOTE | 2019-10-06 17:08 | Discharge Summary ---
Discharge Summary Hospital Course Date of Admission Oct 04, 2019 at 21:17 Date of Discharge 10/06/19 Admitting Diagnosis chest pain HPI Dena Mao is a 83 year old female who was admitted on Oct 04, 2019 at 21:17 for Chest Pain Consultations cardiology Procedures nuclear stress test Hospital Course This is an 83-year-old female with significant cardiac history, CAD status post PCI on Plavix, hypertension, hyperlipidemia, diabetes presented with chest pain of 2 days duration. Her vitals were within normal limits and stable. Her troponin is negative x2, U tox is negative, d-dimer is negative, EKG nonischemic , proBNP 369, platelet count 117, chest x-ray with bilateral interstitial edema and cardiomegaly. 1. Chest pain rule out ACS in a patient with significant cardiac history. stress test today---> nonischemic 2. Diastolic CHF acute likely on chronic 3. Hypertension 4. Hyperlipidemia 5. Diabetes 6. Thrombocytopenia Plan Admit to telemetry Serial cardiac enzymes and EKG 2D echocardiogram to evaluate LV systolic function and any regional wall motion abnormalities. normal EF Cardiology consult with appreciated Resume home metoprolol, isosorbide mononitrate, clopidogrel, atorvastatin Hold metformin. Start insulin via sensitive sliding scale while in the hospital. resume metformin on discharge Check hemoglobin A1c--> 6.4 Judicious diuresis Cardiac stress test per cardiology today was non ischemic Monitor platelet count, if no improvement hematology consult VTE and GI prophylaxis. Will obtain venous ultrasound and use SCD boots due to thrombocytopenia Full code Today she is alert and oriented x3, lung: cta vl, heart s1s2, ext: no edema I spent 40 minutes on this encounter. Greater than 50% spent on counseling care coordination Patient's daughter: Ekta: [phone] Plan of care discussed with patient, RN, events traffic controller. Time of note may not reflect time of encounter. Discharge Medications Continued Medications: Atorvastatin Calcium* (Atorvastatin Calcium*) 40 Mg Tablet 40 MG ORAL BEDTIME, TAB Clopidogrel* (Clopidogrel*) 75 Mg Tablet 75 MG ORAL DAILY, TAB Isosorbide Mononitrate (Isosorbide Mononitrate Er) 30 Mg Tab.er.24h 30 MG PO DAILY, TAB Metformin Hcl* (Metformin Hcl*) 500 Mg Tablet 500 MG ORAL BID, TAB Metoprolol Tartrate* (Metoprolol Tartrate*) 25 Mg Tablet 25 MG ORAL DAILY, TAB Trazodone Hcl* (Desyrel*) 50 Mg Tablet 50 MG ORAL BEDTIME, TAB Discharge Condition Upon Discharge: stable Discharge Disposition Patient was discharged to home Discharge Diagnoses: (1) Diastolic CHF, acute on chronic (2) CAD S/P percutaneous coronary angioplasty (3) Chest pain (4) Thrombocytopenia (5) HLD (hyperlipidemia) (6) HTN (hypertension) (7) Diabetes mellitus Raj Bran M.D. Oct 06, 2019 17:08
== END 2019-10-06 18:51 | disposition home or self-care (01) | DRG 293 ==
LOC: EMR 20:31 → 2E 21:17 → EDBEDREQ 21:34
DX: I11.0 Hypertensive heart disease with heart failure (principal); I50.33 Acute on chronic diastolic (congestive) heart failure; I25.10 Atherosclerotic heart disease of native coronary artery without angina pectoris; Z95.5 Presence of coronary angioplasty implant and graft; E78.5 Hyperlipidemia, unspecified; E11.9 Type 2 diabetes mellitus without complications; D69.6 Thrombocytopenia, unspecified; R07.89 Other chest pain
CPT/HCPCS: 36415; 70450; 71045; 78452; 80048; 80053; 80307; 82962; 83036; 83880; 84443; 84484; 85025; 85379; 85610; 85730; 86710; 93005; 93017; 93306; 94664; 99285; J1815; J2785

== ENCOUNTER 2020-03-09 17:01 | Emergency (ER) | payer MEDICAID ==
[~2020-03-09] VITALS: Ht 154.9 cm; Wt 66.7 kg
[~2020-03-09 17:01] MED LIST: ATORVASTATIN CA40 MG ORAL; CLOPIDOGREL75 MG ORAL; ISOSORBIDE MONO30 M1 PO; METFORMIN HCL500 M1 ORAL; METOPROLOL TART25 MG ORAL; TRAZODONE HCL50 MG ORAL
[2020-03-09] MEDS ORDERED: ASPIRIN EC81 MG ORAL (17:27)
--- NOTE | 2020-03-09 17:35 | NUR ---
ED Nurse Note: Pt ambulated to ED from home d/t s/p right hand injury; 'stuck in the door'; bruise and swelling over the right hand noted. VSS, on RA, afebrile on triage. Placed on bed.
[2020-03-09 17:37] VITALS: BP 97/56
--- NOTE | 2020-03-09 17:42 | NUR ---
ED Nurse Note: X-ray tech at bedside.
[2020-03-09 18:15] VITALS: BP 97/56
--- NOTE | 2020-03-09 18:15 | NUR ---
ER DISCHARGE NOTE: Pt is cleared to be discharged per ERMD, pt is aox4, on room air, with stable vital signs. pt was given dc and prescription instructions, pt was able to verbalize understanding, pt id band removed. pt is able to ambulate with steady gait. pt took all belongings.
--- NOTE | 2020-03-09 18:32 | Emergency Room Report ---
History of Present Illness General Chief Complaint: Upper Extremity Injury Source: Patient (Natacha Hamm) Present Illness HPI 84-year-old female with history of hypertension, normal CHF currently here complaining. Patient rates the pain 10 out of 10 without radiation. Denies any tingling numbness. Has not taken medication for symptom relief. Patient is on aspirin and Plavix. Patient appears to be stable with stable vital signs. Denies cough and congestion, shortness of breath, at this time. Patient is neurovascularly intact. (Natacha Hamm) Allergies: Coded Allergies: No Known Allergies (Unverified , 10/04/19) COVID-19 Screening Contact w/high risk pt: No Recent Travel to affected area: No Experienced COVID-19 symptoms?: No COVID-19 Testing performed MEDICATION NURSE: No (Natacha Hamm) Patient History Past Medical History: see triage record Past Surgical History: none Pertinent Family History: none Now: No Immunizations: UTD Reviewed Nursing Documentation: PMH: Agreed; PSxH: Agreed (Natacha Hamm) Nursing Documentation-PMH Past Medical History: No History, Except For Hx Cardiac Problems: Yes - Stent placement x3 Hx Hypertension: No Hx Pacemaker: No Hx Asthma: No Hx COPD: No Hx Diabetes: Yes Hx Cancer: No Hx Gastrointestinal Problems: No Hx Dialysis: No History Of Psychiatric Problem: No Hx Neurological Problems: No Hx Cerebrovascular Accident: No Hx Seizures: No (Natacha Hamm) Review of Systems All Other Systems: negative except mentioned in HPI (Natacha Hamm) Physical Exam Vital Signs Date Time Temp Pulse Resp B/P (MAP) Pulse Ox O2 Delivery O2 Flow Rate FiO2 03/09/20 17:21 98.2 71 15 97/56 (70) 96 Room Air Sp02 EP Interpretation: reviewed, normal General Appearance: no apparent distress, alert, GCS 15, non-toxic Head: normocephalic, atraumatic Eyes: bilateral eye normal inspection, bilateral eye PERRL ENT: hearing grossly normal, normal pharynx, no angioedema, normal voice Neck: full range of motion, supple/symm/no masses Respiratory: chest non-tender, lungs clear, normal breath sounds Cardiovascular #1: regular rate, rhythm, no edema Cardiovascular #2: 2+ radial (R), 2+ radial (L) Gastrointestinal: normal bowel sounds, non tender, soft, non-distended, no guarding, no rebound Rectal: deferred Genitourinary: no CVA tenderness Musculoskeletal: back normal, tender - Right fourth and fifth metacarpal bone, swelling - Right hand Neurologic: alert, motor strength/tone normal, oriented x3, sensory intact, responsive, speech normal Psychiatric: judgement/insight normal, memory normal, mood/affect normal, no suicidal/homicidal ideation Skin: no rash, other - Obvious ecchymosis noted on right fourth and fifth metacarpal bone Lymphatic: no adenopathy (Natacha Hamm) Medical Decision Making PA Attestation All my diagnosis and treatment plans were reviewed ad discussed with my supervising physician Dr. Garcia (Natacha Hamm) Medicare Attestation The history of Dena Pleitez has been reviewed and management options for her have been examined and discussed by Pool Garcia. I have personally examined and interviewed the patient. (Pool Garcia MD) Diagnostic Impression: Primary Impression: Crushing injury of right hand Additional Impression: Metacarpal bone fracture ER Course 84-year-old female with history of hypertension, normal CHF currently here complaining. Patient rates the pain 10 out of 10 without radiation. Denies any tingling numbness. Has not taken medication for symptom relief. Patient is on aspirin and Plavix. Patient appears to be stable with stable vital signs. Denies cough and congestion, shortness of breath, at this time. Patient is neurovascularly intact. Ddx considered but are not limited to: Hand sprain, hand sprain, hand fracture Vital signs: are WNL, pt. is afebrile H&PE are most consistent with : Right fourth and fifth metacarpal bone fracture due to crushing injury ORDERS: Hand x-ray ED INTERVENTIONS: Tylenol, splint was applied DISCHARGE: At this time pt. is stable for d/c to home. Will provide printed patient care instructions, and any necessary prescriptions. Care plan and follow up instructions have been discussed with the patient prior to discharge. Patient to follow primary doctor, take medication as directed, need to be sent to meeting specialist, patient was handed hand written discharge reported as her system was down at that time. Patient will take Tylenol at home as no other medication can be given as patient takes Xanax at nighttime for sleep as well as being on aspirin and chronic regimen cannot prescribe any NSAIDs at this time. (Natacha Hamm) Other X-Ray Diagnostic Results Other X-Ray Diagnostic Results : X-Ray ordered: right hand # of Views/Limited Vs Complete: 3 View Indication: Pain EP Interpretation: Yes PA Xray: Interpretation reviewed, by supervising MD, and agrees with findings. Interpretation: no dislocation, other - Right fourth and fifth metacarpal fracture Impression: Other - Crushing injury, right fourth and fifth metacarpal fracture Electronically Signed by: Natacha Justin PA-C (Natacha Hamm) Last Vital Signs Date Time Temp Pulse Resp B/P (MAP) Pulse Ox O2 Delivery O2 Flow Rate FiO2 03/09/20 17:37 98.2 15 97/56 96 Room Air 03/09/20 17:21 71 (Natacha Hamm) Disposition: HOME, SELF-CARE Condition: Stable Referrals: [facility],REFERRING (PCP) Patient Instructions: Metacarpal Fracture, [id number] Natacha Hamm Mar 09, 2020 18:32 Pool Garcia MD Mar 11, 2020 13:30
--- NOTE | 2020-03-09 19:06 | Diagnostic Imaging Report ---
Indication: Trauma, pain, swelling Technique: 3 views right hand Comparison: none Findings: No acute fractures. No dislocations. The joint spaces are preserved. There is dorsal soft tissue swelling. Impression: No acute process.
== END 2020-03-09 18:15 | disposition home or self-care (01) ==
LOC: EMR 17:45
DX: S67.194A Crushing injury of right ring finger, initial encounter (principal); S67.196A Crushing injury of right little finger, initial encounter; S62.604A Fracture of unspecified phalanx of right ring finger, initial encounter for closed fracture; S62.606A Fracture of unspecified phalanx of right little finger, initial encounter for closed fracture; X58.XXXA Exposure to other specified factors, initial encounter; Y92.9 Unspecified place or not applicable; I11.0 Hypertensive heart disease with heart failure; I50.9 Heart failure, unspecified; Z79.82 Long term (current) use of aspirin; Z79.02 Long term (current) use of antithrombotics/antiplatelets; Z95.5 Presence of coronary angioplasty implant and graft
CPT/HCPCS: 29125; 73130; Z7502; 99283

== ENCOUNTER 2020-08-20 14:48 | Emergency (ER) | payer MEDICAID ==
[~2020-08-20] VITALS: Ht 152.4 cm; Wt 68.0 kg
[~2020-08-20 14:48] MED LIST changes: +ASPIRIN EC81 MG ORAL
--- NOTE | 2020-08-20 15:07 | NUR ---
ED Nurse Note: PT ambulated to ed from home with daughter. Pt states shes experiencing left sided chest pain x 2 days with new onset of shortnes of breath since today. 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 ERMD at bedside. IV site established, patent and intact. Blood sent to lab.
[2020-08-20 15:08] VITALS: BP 137/67
[2020-08-20] MEDS ORDERED: Morphine Sulfate 2mg/ml Inj(IV/IM USE ONLY) IVP ONE (15:15)
[2020-08-20] MEDS ORDERED: Nitroglycerin 2% oint pkt TOPIC ONE (15:15)
--- NOTE | 2020-08-20 15:18 | Emergency Room Report ---
History of Present Illness General Chief Complaint: Chest Pain Source: Patient, Family Member Present Illness HPI Patient ambulates to the emergency department with her daughter with chief complaint of chest pain. She has had intermittent chest pain for the last 2 months. She was hospitalized last February for similar complaints. Over the last 24 hours she is having increasing amounts of chest pain and shortness of breath. Last night the pain was 9/10 and now today it is 8/10. She did take a regular strength aspirin last night. She is also on Plavix and atorvastatin. He also has risk factor of diabetes and hypertension. She denies fevers, chills, productive cough, sore throat, edema, extremity pain. She did get an injection in her right knee on for osteoarthritis. She describes the pain as around her breast and deeper rating up into her shoulder and also the right side of her chest. Patient had a breast biopsy 5 years ago on the left-hand side. There is no rash and no lymph nodes. No sore throat, palpitations, nausea, vomiting, diarrhea, dysuria, abdominal pain, depression, anxiety, visual changes, dizziness, headache. Allergies: Coded Allergies: No Known Allergies (Unverified , 10/04/19) COVID-19 Screening Contact w/high risk pt: No Recent Travel to affected area: No Experienced COVID-19 symptoms?: No COVID-19 Testing performed CONSULTANT INTERN: No Patient History Past Medical History: see triage record Past Surgical History: PTCA Social History: Denies: smoking, alcohol use, drug use Social History Narrative with daughter Reviewed Nursing Documentation: PMH: Agreed; PSxH: Agreed Nursing Documentation-PMH Past Medical History: No History, Except For Hx Cardiac Problems: Yes - Stent placement x3 Hx Hypertension: No Hx Pacemaker: No Hx Asthma: No Hx COPD: No Hx Diabetes: Yes Hx Cancer: No Hx Gastrointestinal Problems: No Hx Dialysis: No Hx Neurological Problems: No Hx Cerebrovascular Accident: No Hx Seizures: No Review of Systems All Other Systems: negative except mentioned in HPI Physical Exam Vital Signs Date Time Temp Pulse Resp B/P (MAP) Pulse Ox O2 Delivery O2 Flow Rate FiO2 08/20/20 14:55 97.2 70 17 137/67 (90) 95 Room Air Sp02 EP Interpretation: reviewed, normal General Appearance: well appearing, no apparent distress, GCS 15, other - Elderly and frail Head: normocephalic Eyes: bilateral eye normal inspection, bilateral eye PERRL, bilateral eye EOMI ENT: other - Wearing mask Neck: supple Respiratory: lungs clear, normal breath sounds Cardiovascular #1: regular rate, rhythm, no edema Cardiovascular #2: 2+ radial (R) Gastrointestinal: normal inspection, normal bowel sounds, non tender, no mass, non-distended Genitourinary: no CVA tenderness Musculoskeletal: back normal, normal range of motion, no calf tenderness, gait/station normal, other - Some tenderness with passive range of motion of left shoulder Neurologic: alert, oriented x3, grossly normal Psychiatric: mood/affect normal Skin: no rash - Fully dressed, warm/dry Medical Decision Making Diagnostic Impression: Primary Impression: Chest pain Qualified Codes: R07.9 - Chest pain, unspecified ER Course Patient with prior coronary artery disease and stent presents with chest pain. Differential includes acute myocardial infarction, unstable angina, chest wall pain, osteoarthritis amongst others. Evaluation with EKG, chest x-ray and labs. Paced placed on a tour guide. Patient treated with nitroglycerin paste, Zofran and morphine. EKG sinus rhythm with nonspecific ST-T wave changes no acute injury. Chest x- ray heart upper limits of normal, slight revascularization. Normal white count and CBC. CMP unremarkable. Initial troponin negative. BNP slightly elevated. Pain is improved after initial administration of medication. Due to cardiac risk factors patient needs admission to the hospital for further evaluation and treatment. Discussed with hospitalist at [facility]. Accepts patient. Patient pain free. Daughter insists on taking patient home instead of [facility]. Mother is also in agreement. AMA. Daughter's reasoning was fear of Covid at [facility]. Laboratory Tests Test 08/20/20 15:06 08/20/20 16:35 White Blood Count 6.5 K/UL (4.8-10.8) Red Blood Count 4.42 M/UL (4.20-5.40) Hemoglobin 13.9 G/DL (12.0-16.0) Hematocrit 40.2 % (37.0-47.0) Mean Corpuscular Volume 91 FL (80-99) Mean Corpuscular Hemoglobin 31.4 PG (27.0-31.0) H Mean Corpuscular Hemoglobin Concent 34.6 G/DL (32.0-36.0) Red Cell Distribution Width 11.9 % (11.6-14.8) Platelet Count 125 K/UL (150-450) L Mean Platelet Volume 10.2 FL (6.5-10.1) H Neutrophils (%) (Auto) 43.3 % (45.0-75.0) L Lymphocytes (%) (Auto) 42.5 % (20.0-45.0) Monocytes (%) (Auto) 8.7 % (1.0-10.0) Eosinophils (%) (Auto) 3.9 % (0.0-3.0) H Basophils (%) (Auto) 1.6 % (0.0-2.0) Prothrombin Time 12.1 SEC (9.30-11.50) H Prothrombin Time INR 1.1 (0.9-1.1) Activated Partial Thromboplast Time 24 SEC (23-33) Sodium Level 140 MMOL/L (136-145) Potassium Level 4.4 MMOL/L (3.5-5.1) Chloride Level 103 MMOL/L (98-107) Carbon Dioxide Level 30 MMOL/L (21-32) Anion Gap 8 mmol/L (5-15) Blood Urea Nitrogen 16 mg/dL (7-18) Creatinine 0.9 MG/DL (0.55-1.30) Estimated Glomerular Filtration Rate > 60 mL/min (>60) Glucose Level 128 MG/DL (74-106) H Calcium Level 10.1 MG/DL (8.5-10.1) Total Bilirubin 0.7 MG/DL (0.2-1.0) Aspartate Amino Transferase (AST) 27 U/L (15-37) Alanine Aminotransferase (ALT) 29 U/L (12-78) Alkaline Phosphatase 99 U/L (46-116) Total Creatine Kinase 138 U/L (26-308) Troponin I 0.001 ng/mL (0.000-0.056) Pro-B-Type Natriuretic Peptide 525 pg/mL (0-125) H Total Protein 7.4 G/DL (6.4-8.2) Albumin 4.2 G/DL (3.4-5.0) Globulin 3.2 g/dL Albumin/Globulin Ratio 1.3 (1.0-2.7) Lipase 186 U/L (73-393) Urine Color Pale yellow Urine Appearance Clear Urine pH 5 (4.5-8.0) Urine Specific [place] 1.015 (1.005-1.035) Urine Protein Negative (NEGATIVE) Urine Glucose (UA) Negative (NEGATIVE) Urine Ketones Negative (NEGATIVE) Urine Blood Negative (NEGATIVE) Urine Nitrite Negative (NEGATIVE) Urine Bilirubin Negative (NEGATIVE) Urine Urobilinogen Normal MG/DL (0.0-1.0) Urine Leukocyte Esterase Negative (NEGATIVE) EKG Diagnostic Results Troponin ordered: Yes Rate: normal Rhythm: NSR ST Segments: no acute changes - Nonspecific ST-T wave changes ASA given to the pt in ED: No - patient took regular strength aspirin last night Rhythm Strip Diag. Results EP Interpretation: yes Rhythm: NSR, no PVC's, no ectopy Chest X-Ray Diagnostic Results Chest X-Ray Diagnostic Results : Chest X-Ray Ordered: Yes # of Views/Limited/Complete: 1 View Indication: Chest Pain EP Interpretation: Yes Interpretation: no consolidation, no effusion, no pneumothorax, other - Heart upper limits of normal, mild vascularization Impression: Other Electronically Signed by: Electronically signed by Donnell Velasquez MD Last Vital Signs Date Time Temp Pulse Resp B/P (MAP) Pulse Ox O2 Delivery O2 Flow Rate FiO2 08/20/20 18:25 97.5 68 22 111/63 97 Room Air Status: improved Disposition: AGAINST MEDICAL ADVICE Condition: Serious Donnell Velasquez MD Aug 20, 2020 15:18
--- NOTE | 2020-08-20 15:32 | NUR ---
ED Nurse Note: Xray completed.
[2020-08-20 15:38] LABS: BASOPHILS % (AUTO) 1.6 % (0.0-2.0); EOSINOPHILS % (AUTO) 3.9 % (0.0-3.0); HEMATOCRIT 40.2 % (37.0-47.0); HEMOGLOBIN 13.9 G/DL (12.0-16.0); LYMPHOCYTES % (AUTO) 42.5 % (20.0-45.0); MEAN CORPUSCULAR VOLUME 91 FL (80-99); MONOCYTES % (AUTO) 8.7 % (1.0-10.0); NEUTROPHILS % (AUTO) 43.3 % (45.0-75.0); PLATELET COUNT 125 K/UL (150-450); RED BLOOD COUNT 4.42 M/UL (4.20-5.40); RED CELL DISTRIBUTION WIDTH 11.9 % (11.6-14.8); WHITE BLOOD COUNT 6.5 K/UL (4.8-10.8)
--- NOTE | 2020-08-20 15:45 | NUR ---
ED Nurse Note: OFFERED PT WARM BLANKETS FOR COMFORT.
[2020-08-20 15:48] LABS: INR 1.1 (0.9-1.1)
--- NOTE | 2020-08-20 15:57 | Diagnostic Imaging Report ---
EXAM: XR Chest, 1 View CLINICAL HISTORY: CP TECHNIQUE: Frontal view of the chest. COMPARISON: 10/04/19 FINDINGS: Lungs: Vascular congestion. No overt edema. Pleural space: Unremarkable. No pneumothorax. Heart: Redemonstrated cardiomegaly. Mediastinum: Calcified aorta. Bones/joints: Osteopenia. IMPRESSION: Cardiomegaly and mild vascular congestion. No overt edema
[2020-08-20 16:03] LABS: ANION GAP 8 mmol/L (5-15); BLOOD UREA NITROGEN 16 mg/dL (7-18); CALCIUM 10.1 MG/DL (8.5-10.1); CARBON DIOXIDE 30 MMOL/L (21-32); CHLORIDE 103 MMOL/L (98-107); CREATININE 0.9 MG/DL (0.55-1.30); POTASSIUM 4.4 MMOL/L (3.5-5.1); SODIUM 140 MMOL/L (136-145)
[2020-08-20 16:14] LABS: ALANINE AMINOTRANSFERASE 29 U/L (12-78); ALBUMIN 4.2 G/DL (3.4-5.0); ALBUMIN/GLOBULIN RATIO 1.3 (1.0-2.7); ALKALINE PHOSPHATASE 99 U/L (46-116); ASPARTATE AMINO TRANSFERASE 27 U/L (15-37); BILIRUBIN,TOTAL 0.7 MG/DL (0.2-1.0); CREATINE KINASE 138 U/L (26-308)
--- NOTE | 2020-08-20 16:25 | NUR ---
ED Nurse Note: PT IN BED RESTING, APPEARS COMFORTABLE
[2020-08-20 17:09] VITALS: BP 106/61
[2020-08-20 17:51] LABS: APPEARANCE,URINE CLEAR; BILIRUBIN, URINE NEGATIVE (NEGATIVE); COLOR,URINE PALE YELLOW; GLUCOSE, URINE (UA) NEGATIVE (NEGATIVE); KETONES,URINE NEGATIVE (NEGATIVE); LEUKOCYTE ESTERASE ,URINE NEGATIVE (NEGATIVE); NITRITE,URINE NEGATIVE (NEGATIVE); PH,URINE 5 (4.5-8.0); PROTEIN,URINE NEGATIVE (NEGATIVE); UROBILINOGEN,URINE NORMAL MG/DL (0.0-1.0)
--- NOTE | 2020-08-20 18:19 | NUR ---
ED Nurse Note: PT DAUGHTER INSISTS ON LEAVING AMA. DAUGHTER SPOKE WITH ERMD. DAUGHTER BEGAN REMOVING PT FROM [employer]. INFORMED DAUGHTER SHE NEEDS TO WAIT FOR AMA FORM.
[2020-08-20 18:25] VITALS: BP 111/63
--- NOTE | 2020-08-20 18:25 | NUR ---
AMA: SEE AMA FORM.
--- NOTE | 2020-08-20 18:29 | NUR ---
ED Nurse Note: PT RETURNED AFTER SPEAKING WITH ERMD AGAIN, IN REGARDS TO BEING TRANSFERRED TO ANOTHER FACILITY THAN THE [facility]. WILL WAIT TO SEE IF INSURANCE CAN ALLOW TRANSFER.
--- NOTE | 2020-08-20 18:31 | NUR ---
ED Nurse Note: REGISTRATION SPEAKING WITH DAUGHTER OF PT
--- NOTE | 2020-08-20 18:32 | NUR ---
ED Nurse Note: PT AND PT DAUGHTER HAVE CONTINUED TO LEAVE AMA.
--- NOTE | 2020-08-21 20:37 | Cardiology Report ---
APPROVED REPORT EKG Measurement Heart [id number] <Conclusion> Normal sinus rhythm Nonspecific T wave abnormality Abnormal ECG
== END 2020-08-20 18:26 | disposition other institution (70) ==
LOC: EMR 15:17 → CANBEDREQ 18:25 → EMR 18:26
DX: R07.9 Chest pain, unspecified (principal); E11.9 Type 2 diabetes mellitus without complications; Z53.29 Procedure and treatment not carried out because of patient's decision for other reasons; Z95.5 Presence of coronary angioplasty implant and graft
CPT/HCPCS: 36415; 71045; 80053; 81003; 82550; 83690; 83880; 84484; 85025; 85610; 85730; 93005; 96374; 96375; J2270; J2405; Z7502; 99284